=== PATIENT | female | born 1985 | race Caucasian/White ===

== ENCOUNTER 2017-06-06 10:39 | Inpatient (IN) | payer BC ==
[~2017-06-06] VITALS: Ht 157.5 cm; Wt 70.4 kg
[2017-06-06 10:50] VITALS: BP 110/62
[2017-06-06 12:42] LABS: ASPARTATE AMINO TRANSFERASE 16 U/L (15-37); BLOOD UREA NITROGEN 6 mg/dL (7-18)
[2017-06-06] MEDS ORDERED: LACTATED RINGERS 1,000 ML IV SCH (13:38)
[2017-06-06] MEDS ORDERED: D5%-LACTATED RINGERS 1,000 ML IV SCH (13:38)
[2017-06-06] MEDS ORDERED: OXYTOCIN 30U/ 0.9% NaCL 500ML 500 ML IV ONE (13:38)
[2017-06-06] MEDS ORDERED: NEWBORN KIT ONE (13:45)
[2017-06-06] MEDS ORDERED: LIDOCAINE 1%, 20ML ONE (13:45)
[2017-06-06] MEDS ORDERED: MISOPROSTOL 200 MCG TABLET ONE (13:45)
[2017-06-06] MEDS ORDERED: OXYTOCIN 30U/ 0.9% NaCL 500ML 500 ML ONE (13:45)
[2017-06-06] MEDS ORDERED: MISOPROSTOL 25 MCG TABLET ONE (13:45)
[2017-06-06] MEDS ORDERED: MISOPROSTOL 25 MCG TABLET VG PRN (14:00)
[2017-06-06] MEDS ORDERED: FENTANYL PF 100 MCG/2ML IV PRN (14:00)
[2017-06-06] MEDS ORDERED: METOCLOPRAMIDE 5 MG/ML, 2ML IVPush PRN (14:00)
[2017-06-06] MEDS ORDERED: FENTANYL PF 100 MCG/2ML IVPush PRN (14:00)
[2017-06-06] MEDS ORDERED: ONDANSETRON 2MG/ML, 2ML IVPush PRN (14:00)
[2017-06-06] MEDS ORDERED: TERBUTALINE 1 MG/ML, 1ML IVPush PRN (14:00)
[2017-06-06 14:01] LABS: HEMATOCRIT 38.2 % (34.6-47.8); HEMOGLOBIN 12.7 g/dL (11.7-16.4); WHITE BLOOD COUNT 10.1 x10^3/uL (3.4-10)
[2017-06-06] MEDS: SODIUM CHLORIDE FLUSH 10ML SYR IVF SCH (14:23)
[2017-06-06] MEDS ORDERED: OXYTOCIN 30U/ 0.9% NaCL 500ML 500 ML IV PRN (18:41)
[2017-06-06 19:29] VITALS: BP 117/73
[2017-06-07] MEDS ORDERED: FENTANYL PF 100 MCG/2ML ONE (00:17)
[2017-06-07] MEDS ORDERED: LACTATED RINGERS 1,000 ML IV SCH (01:25)
[2017-06-07] MEDS ORDERED: FENTANYL/BUPIV./NS/PF 250 ML EPIDCONT SCH (01:25)
[2017-06-07] MEDS ORDERED: FENTANYL/BUPIV./NS/PF 250 ML EPIDCONT ONE (01:27)
[2017-06-07] MEDS ORDERED: BUPIVACAINE/PF 0.25% ONE (01:28)
[2017-06-07] MEDS ORDERED: LACTATED RINGERS 1,000 ML IVBOLUS PRN (01:30)
[2017-06-07] MEDS ORDERED: EPHEDRINE 50 MG/ML, 1ML IVPush PRN (01:30)
[2017-06-07] MEDS ORDERED: NALOXONE 0.4 MG/ML, 1ML IVPush PRN (01:30)
[2017-06-07] MEDS ORDERED: ONDANSETRON 2MG/ML, 2ML IV PRN (04:00)
[2017-06-07] MEDS ORDERED: ACETAMINOPHEN 325 MG TABLET PO PRN (04:00)
[2017-06-07] MEDS ORDERED: ERYTHROMYCIN OPHTH 0.5%, 1GM EACHEYE ONE (04:00)
[2017-06-07] MEDS ORDERED: OXYcodone/APAP 5/325MG TABLET PO PRN ×2 (04:00)
[2017-06-07] MEDS ORDERED: HEPATITIS B PED VACCINE/PF 10MCG/0.5ML IM-VACC PRN (04:00)
[2017-06-07] MEDS ORDERED: METHYLERGONOVINE 0.2 MG/ML IM PRN (04:00)
[2017-06-07] MEDS ORDERED: PHYTONADIONE 1 MG/0.5ML IM ONE (04:00)
[2017-06-07 05:45] VITALS: BP 110/66
[2017-06-07] MEDS: OXYTOCIN 30U/ 0.9% NaCL 500ML 500 ML IV SCH ×3 (05:45→23:54)
[2017-06-07 07:45] VITALS: BP 109/53
[2017-06-07] MEDS: DOCUSATE 100 MG CAPSULE PO PRN ×2 (08:03→20:36)
[2017-06-07] MEDS: IBUPROFEN 600 MG TABLET PO PRN ×3 (08:03→20:36)
[2017-06-07] MEDS: SODIUM CHLORIDE FLUSH 10ML SYR IVF SCH ×2 (08:04→21:00)
[2017-06-07] MEDS ORDERED: PRENATAL VIT/IRON/FA 1 EACH TABLET PO SCH (09:00)
[2017-06-07 11:34] LABS: HEMATOCRIT 34.7 % (34.6-47.8); HEMOGLOBIN 11.7 g/dL (11.7-16.4); WHITE BLOOD COUNT 14.9 x10^3/uL (3.4-10)
[2017-06-07 12:40] VITALS: BP 111/61
[2017-06-07 16:46] VITALS: BP 112/73
[2017-06-07 21:15] VITALS: BP 105/65
[2017-06-08] MEDS: IBUPROFEN 600 MG TABLET PO PRN (05:15)
[2017-06-08] MEDS: DOCUSATE 100 MG CAPSULE PO PRN (08:24)
[2017-06-08] MEDS ORDERED: IBUP-1222 PO (10:01)
== END 2017-06-08 11:35 | disposition home or self-care (01) | DRG 775 ==
LOC: LDOP 10:39 → LDIP 13:47 → 2NW 06-07 05:36
PROVIDERS: ADMIT Obstetrics & Gynecology; ATTEND Obstetrics & Gynecology
PROC: 10E0XZZ Delivery of Products of Conception, External Approach (ICD-10-PCS; principal; 2017-06-07)
PROC: 0HQ9XZZ Repair Perineum Skin, External Approach (ICD-10-PCS; 2017-06-07)
PROC: 3E0S3BZ Introduction of Anesthetic Agent into Epidural Space, Percutaneous Approach (ICD-10-PCS; 2017-06-07)
PROC: 00HU33Z Insertion of Infusion Device into Spinal Canal, Percutaneous Approach (ICD-10-PCS; 2017-06-07)
DX: O26.62 Liver and biliary tract disorders in childbirth (principal); K83.1 Obstruction of bile duct; O69.81X0 Labor and delivery complicated by cord around neck, without compression, not applicable or unspecified; O70.0 First degree perineal laceration during delivery; Z3A.38 38 weeks gestation of pregnancy; Z37.0 Single live birth
CPT/HCPCS: 36415; 80053; 82239; 85025; 86850; 86900; J2405; J3010; J2590; J7120

== ENCOUNTER 2019-01-28 10:41 | Inpatient (IN) | payer BC ==
[~2019-01-28] VITALS: Ht 157.5 cm; Wt 79.5 kg
[~2019-01-28 10:41] MED LIST: IBUP-1222 PO
[2019-01-28] MEDS ORDERED: D5%-LACTATED RINGERS 1,000 ML IV SCH (11:03)
[2019-01-28] MEDS ORDERED: OXYTOCIN 30U/ 0.9% NaCL 500ML 500 ML ONE (11:03)
[2019-01-28] MEDS ORDERED: LIDOCAINE 1%, 20ML ONE (11:03)
[2019-01-28] MEDS ORDERED: OXYTOCIN 30U/ 0.9% NaCL 500ML 500 ML IV ONE (11:03)
[2019-01-28] MEDS ORDERED: NEWBORN KIT ONE (11:03)
[2019-01-28] MEDS ORDERED: OXYTOCIN 30U/ 0.9% NaCL 500ML 500 ML IV PRN (11:03)
[2019-01-28] MEDS ORDERED: MISOPROSTOL 200 MCG TABLET ONE (11:03)
[2019-01-28] MEDS ORDERED: LACTATED RINGERS 1,000 ML IV SCH (11:03)
[2019-01-28 11:29] LABS: BASOPHILS # (AUTO) 0.02 x10^3/uL (0-0.1); BASOPHILS % (AUTO) 0 % (0-1); EOSINOPHILS # (AUTO) 0.03 x10^3/uL (0-0.4); EOSINOPHILS % (AUTO) 0 % (1-7); LYMPHOCYTES % (AUTO) 15 % (22-44); MD NO; MEAN CORPUSCULAR HEMOGLOBIN 33.3 pg (27.0-34.8); MEAN CORPUSCULAR HGB CONC 33.5 g/dL (32.4-35.8); MEAN CORPUSCULAR VOLUME 99.2 fL (80-100); MONOCYTES # (AUTO) 0.48 x10^3/uL (0.2-0.8); MONOCYTES % (AUTO) 5 % (2-9); NEUTROPHILS # (AUTO) 7.53 x10^3/uL (1.8-6.8); NEUTROPHILS % (AUTO) 80 % (42-75); PLATELET COUNT 232 x10^3/uL (130-400); RED BLOOD COUNT 4.01 x10^6/uL (3.82-5.3); RED CELL DISTRIBUTION WIDTH 13.7 % (9.6-15.2)
[2019-01-28] MEDS ORDERED: ONDANSETRON 2MG/ML, 2ML IVPush PRN (11:30)
[2019-01-28] MEDS ORDERED: FENTANYL PF 100 MCG/2ML IVPush PRN (11:30)
[2019-01-28] MEDS ORDERED: SODIUM CITRATE/CITRIC ACID 15 ML UDC PO PRN (11:30)
[2019-01-28] MEDS ORDERED: CALCIUM CARBONATE 500 MG TAB.CHEW PO PRN ×2 (11:30→15:00)
[2019-01-28] MEDS ORDERED: ALUMINUM/MAG/SIMETHICONE 30 ML UDC PO PRN (11:30)
[2019-01-28] MEDS: OXYTOCIN 30U/ 0.9% NaCL 500ML 500 ML IV SCH (14:31)
[2019-01-28] MEDS ORDERED: OXYcodone/APAP 5/325MG TABLET PO PRN ×2 (15:00)
[2019-01-28] MEDS ORDERED: ONDANSETRON 2MG/ML, 2ML IV PRN (15:00)
[2019-01-28] MEDS ORDERED: DIPH,PERTUSS(ACELL),TET VAC/PF NC IM-VACC PRN (15:00)
[2019-01-28] MEDS ORDERED: BISACODYL 10 MG SUPP PR PRN (15:00)
[2019-01-28] MEDS ORDERED: MISOPROSTOL 200 MCG TABLET PR PRN (15:00)
[2019-01-28] MEDS ORDERED: MEASLES,MUMPS&RUBELLA VACC/PF 0.5 ML SQ PRN (15:00)
[2019-01-28] MEDS ORDERED: METHYLERGONOVINE 0.2 MG/ML IM PRN (15:00)
[2019-01-28] MEDS ORDERED: GLYCERIN ADULT SUPP PR PRN (15:00)
[2019-01-28] MEDS ORDERED: ACETAMINOPHEN 325 MG TABLET PO PRN ×2 (15:00)
[2019-01-28] MEDS ORDERED: CARBOPROST TROMETHAMINE 250 MCG/ML, 1ML IM PRN (15:00)
[2019-01-28] MEDS ORDERED: METOCLOPRAMIDE 5 MG/ML, 2ML IV PRN (15:00)
[2019-01-28] MEDS ORDERED: MAGNESIUM HYDROXIDE 8%, 30ML UDC PO PRN (15:00)
[2019-01-28] MEDS ORDERED: IBUPROFEN 800 MG TABLET ONE ×2 (15:37→15:50)
[2019-01-28] MEDS ORDERED: IBUPROFEN 800 MG TABLET PO PRN (16:00)
[2019-01-28] MEDS: LACTATED RINGERS 1,000 ML IV SCH (17:07)
[2019-01-28 18:08] VITALS: BP 131/83
[2019-01-28 19:30] VITALS: BP 110/66
[2019-01-28] MEDS: DOCUSATE 100 MG CAPSULE PO PRN (21:48)
[2019-01-28] MEDS: IBUPROFEN 600 MG TABLET PO PRN (23:34)
[2019-01-28 23:40] VITALS: BP 108/56
[2019-01-29] MEDS: OXYTOCIN 30U/ 0.9% NaCL 500ML 500 ML IV SCH (00:31)
[2019-01-29] MEDS: LACTATED RINGERS 1,000 ML IV SCH (01:04)
[2019-01-29 04:15] VITALS: BP 117/71
[2019-01-29] MEDS: IBUPROFEN 600 MG TABLET PO PRN ×2 (05:28→11:46)
[2019-01-29 06:36] LABS: BASOPHILS # (AUTO) 0.01 x10^3/uL (0-0.1); BASOPHILS % (AUTO) 0 % (0-1); EOSINOPHILS # (AUTO) 0.06 x10^3/uL (0-0.4); EOSINOPHILS % (AUTO) 1 % (1-7); LYMPHOCYTES # (AUTO) 2.03 x10^3/uL (1-3.4); LYMPHOCYTES % (AUTO) 18 % (22-44); MD NO; MEAN CORPUSCULAR HEMOGLOBIN 34.2 pg (27.0-34.8); MEAN CORPUSCULAR HGB CONC 34.3 g/dL (32.4-35.8); MEAN CORPUSCULAR VOLUME 99.6 fL (80-100); MEAN PLATELET VOLUME 9.2 fL (7.4-10.4); MONOCYTES # (AUTO) 0.84 x10^3/uL (0.2-0.8); MONOCYTES % (AUTO) 8 % (2-9); NEUTROPHILS # (AUTO) 8.33 x10^3/uL (1.8-6.8); NEUTROPHILS % (AUTO) 74 % (42-75); PLATELET COUNT 207 x10^3/uL (130-400); RED BLOOD COUNT 3.58 x10^6/uL (3.82-5.3); RED CELL DISTRIBUTION WIDTH 13.8 % (9.6-15.2)
[2019-01-29 07:54] VITALS: BP 123/80
[2019-01-29] MEDS ORDERED: PRENATAL VIT/IRON/FA 1 EACH TABLET PO SCH (09:00)
[2019-01-29] MEDS: DOCUSATE 100 MG CAPSULE PO PRN (09:20)
[2019-01-29 14:00] VITALS: BP 122/79
[2019-01-29] MEDS ORDERED: IBUP-1222 PO (16:27)
== END 2019-01-29 16:54 | disposition home or self-care (01) | DRG 807 ==
LOC: LDOP 10:41 → LDIP 11:06 → 2NW 17:45
PROVIDERS: ADMIT Obstetrics & Gynecology; ATTEND Obstetrics & Gynecology
PROC: 10E0XZZ Delivery of Products of Conception, External Approach (ICD-10-PCS; principal; 2019-01-28)
PROC: 0KQM0ZZ Repair Perineum Muscle, Open Approach (ICD-10-PCS; 2019-01-28)
DX: O99.354 Diseases of the nervous system complicating childbirth (principal); Z37.0 Single live birth; O70.1 Second degree perineal laceration during delivery; G93.0 Cerebral cysts; Z3A.41 41 weeks gestation of pregnancy; Z90.49 Acquired absence of other specified parts of digestive tract
CPT/HCPCS: 36415; 85025; 86850; 86900; G0378; J2590; J7120